=== PATIENT | female | born 1975 | race Hispanic/Latino ===

== ENCOUNTER 2022-05-16 18:54 | Emergency (ER) | payer SELFPAY ==
[2022-05-16] MEDS ORDERED: Morphine 4 MG/ML VIAL ONE (22:03)
[2022-05-16] MEDS ORDERED: Ondansetron ODT 4 MG TAB ONE (22:03)
[2022-05-16] MEDS ORDERED: Piperacillin/Tazobactam 4.5 GM VIAL ONE (22:41)
== END 2022-05-16 23:55 | disposition home or self-care (01) ==
LOC: CSHERS 18:54
DX: N70.93 Salpingitis and oophoritis, unspecified (principal)
CPT/HCPCS: 76856; 96365; 96372; J2270; J2543; Q0162